=== PATIENT | female | born 1950 | race Two or more races ===

== ENCOUNTER → 2017-01-26 | Outpatient (CLI) | payer OTHER ==
--- NOTE | 2017-01-26 14:56 | RADRPT ---
PROCEDURE: XR Knees. CLINICAL INDICATION: Pain. TECHNIQUE: AP (with weightbearing), lateral, and sunrise views of the bilateral knees are availabl e for review. COMPARISON: None available FINDINGS: Mild osteoarthritic changes of the bilateral knees with joint space narrowing most notable in the me dial compartments.. No radiopaque foreign body is identified. Alignment is anatomic. There is no s ignificant joint effusions. IMPRESSION: 1. Mild osteoarthritic changes most notable in the medial compartments of the bilateral knees.. 2. No acute fracture or dislocation is seen. RPTAT: KK .Jose Urias MD, Date Time Electronically viewed and signed by .Jose Urias MD, on 01/26/2017 14:56 .L/
--- NOTE | 2017-01-27 03:13 | HKNOTE ---
DATE OF SERVICE: 01/26/2017 CHIEF COMPLAINT: Right knee pain. HISTORY OF PRESENT ILLNESS: This is a 66-year-old female with a complaint of bilateral knee pain fo r the last several years. The right knee pain has been worsening over the last year. She has diffi culty ambulating. She has difficulty performing her activities of daily living. She does not take any pain medications. She does not use any assistive devices. She does not have any groin or back pain. There is no radiation of the pain. The pain is intermittent. It is on the inside of the kne e. It is sharp. GAIT: Nonantalgic gait, no use of assist device. RIGHT KNEE EXAM: Neutral alignment. Tender over the medial joint line, nontender over the lateral joint line. A 0 to 120 degrees range of motion, stable to varus valgus stress, negative Amaya, ne gative anterior drawer, negative posterior drawer. MOTOR STRENGTH: 5/5 hamstrings, tibialis anterior, gastroc soleus and peroneals. LEFT KNEE EXAM: The same as the right knee exam. X-RAYS RIGHT KNEE: Three views of the right knee demonstrate medial joint space narrowing. There i s also narrowing of the patellofemoral joint. X-RAYS LEFT KNEE: The same findings as the right knee. IMPRESSION: A 66-year-old female with bilateral knee osteoarthritis. PLAN: We will request authorization for right knee Monovisc injection. She will follow up followin g approval. Dictated By: DENISE HARRIS/LM Conf#: [id number] DID#: [id number]
== END | disposition home or self-care (01) ==
LOC: HKI 14:10
PROVIDERS: ATTEND Orthopaedic Surgery Adult Reconstructive Orthopaedic Surgery
DX: M17.0 Bilateral primary osteoarthritis of knee (principal)
CPT/HCPCS: 73564; Z7500; G0463